=== PATIENT | female | born 1960 | race Caucasian/White ===

== ENCOUNTER 2020-06-18 14:44 | Emergency (ER) | payer BC, SELFPAY ==
--- NOTE | ~2020-06-18 | XR_ITS ---
EXAMINATION: XR ankle LT min 3V EXAM DATE: 06/18/2020 15:06 INDICATION: Initial encounter following injury, with pain of the left bulb. TECHNIQUE: Left ankle frontal, lateral and oblique projections obtained and reviewed. There is no pr ior study for comparison. FINDINGS: The left ankle mortise appears intact. There is small acute appearing closed posttraumat ic avulsion fracture at the dorsal aspect of the anterior talar process seen on the lateral projectio n. This finding has been indicated, marked on the examination for review, clinical correlation. There is overlying soft tissue swelling. No other acute findings. IMPRESSION: Anterior talar process acute avulsion fracture. Reviewed, dictated and finalized at location A.
[2020-06-18 14:54] VITALS: BP 139/85; PULSE 109; RESP 16; TEMP 36.9; O2SAT 100
--- NOTE | 2020-06-18 14:57 | ED.LOWEXIN ---
HPI - Extremity Injury (Lower) General Chief Complaint: Extremity Injury, Lower Stated Complaint: lt ankle injury Time Seen by Provider: 06/18/20 15:07 Source: patient and RN notes reviewed Mode of arrival: ambulatory Limitations: no limitations History of Present Illness HPI Narrative: 59 year old female who presents to [facility] ambulating with crutches with no weight bearing to her left foot. Patient states that she stepped down 2 steps and rolled her foot yesterday at her sister's house. Patient is visiting from [place] for [facility] and is suppose to take plane back to [place] either tomorrow or Thursday.. Patient states that she has been applying ice to her left ankle, has elevated her foot and has taken Motrin for her discomfort. Patient has history of rheumatoid arthritis and she increased her dose of prednisone due to her injury. Patient has noted swelling, bruising and pain to her left lateral ankle region,pulses strong to left foot with no tinging or numbness voiced. MD complaint: ankle injury Onset (ago): day(s) (yesterday afternoon) Injury: Left: ankle Type of Injury: other (rolled foot) Place: other (family member) Severity: mild Severity scale (1-10): 2 Relieving factors: NSAID, rest and other (ice and alissa) Exacerbating factors: weight bearing and movement Context: fall and other (going down steps) Associated symptoms: swelling and able to partially bear weight Other symptoms: none Treatments prior to arrival: cold therapy, NSAIDS and other (alissa, motrin) Related Data Home Medications Medication Instructions Recorded Confirmed hydroxychloroquine [Plaquenil] 200 mg PO DAILY 06/18/20 06/18/20 prednisone 10 mg PO DAILY 06/18/20 06/18/20 Allergies Allergy/AdvReac Type Severity Reaction Status Date / Time No Known Allergies Allergy Verified 06/18/20 15:13 Review of Systems Review of Systems: Narrative: CONSTITUTIONAL: Denies fever, chills, or sweats. EYES: Denies visual changes, redness, or discharge. ENT: Denies rhinorrhea, congestion, sore throat, or otalgia. CARDIOVASCULAR: Denies chest pain, palpitations, or edema. RESPIRATORY: Denies cough or dyspnea. GASTROINTESTINAL: Denies abdominal pain, nausea, vomiting, or diarrhea. GENITOURINARY: Denies dysuria or hematuria. SKIN: Denies rash or itching. MUSCULOSKELETAL: Denies back pain,positive for left ankle joint pain, or myalgia. NEUROLOGIC: Denies headache, numbness, or weakness. PSYCHIATRIC: Denies anxiety or depression. All systems reviewed & are unremarkable except as noted in HPI and below PMFSH Past Medical History Medical History (Updated 06/20/20 @ 15:30 by Jina Beltran NP) Rheumatoid arthritis Surgical History Surgical History (Updated 06/20/20 @ 15:26 by Jina Beltran NP) History of appendectomy Family History Family History (Updated 06/20/20 @ 15:28 by Jina Beltran NP) Father Heart disease Mother Graves disease Hypertension Social History Social History (Updated 06/18/20 @ 15:43 by Jina Beltran NP) Smoking status: Never smoker Alcohol intake: current Substance use: never Living arrangements: with family Gender identity (if verbalized by the patient): Female Comments At time of signature, agree with nursing past medical, surgical, social and family history. There is no relevant family history pertinent to the presenting complaint Exam Narrative: Exam Narrative: GENERAL: Well-appearing, well-nourished, and in no acute distress. HEAD: Normocephalic, atraumatic. EYES: PERRLA and EOMI. ENT: Nares clear, no rhinorrhea or epistaxis. Mucous membranes moist. NECK: Supple.no lymphadenopathy CHEST: Clear to auscultation. No respiratory distress. HEART: Regular rate and rhythm. No murmur heard. Normal peripheral pulses. ABDOMEN: Soft, nontender, nondistended, normal active bowel sounds. EXTREMITIES: Normal range of motion. No edema with exception to left lateral ankle which has noted swelling bruisin
== END 2020-06-18 15:45 | disposition home or self-care (01) ==
PROVIDERS: Emergency Provider Registered Nurse
DX: S92.155A Nondisplaced avulsion fracture (chip fracture) of left talus, initial encounter for closed fracture (principal); X58.XXXA Exposure to other specified factors, initial encounter
CPT/HCPCS: 73610; 99204; G0463